=== PATIENT | female | born 1960 | race Caucasian/White ===

== ENCOUNTER → 2019-11-27 09:35 | Outpatient (BNVA) | payer MEDICARE, MEDICAID, SELFPAY | PROVIDERS: PCP Internal Medicine; Referring Provider Internal Medicine; Visit Provider Physician Assistant | DX: Z76.89 Persons encountering health services in other specified circumstances (principal) ==

== ENCOUNTER 2020-10-21 11:27 | Outpatient (REF) | payer OTHER, SELFPAY | END 2020-10-21 11:28 | disposition home or self-care (01) | LOC: HO.LNP 11:27 | PROVIDERS: PCP Internal Medicine | DX: N39.41 Urge incontinence (principal) | CPT/HCPCS: 87086; 87088; 87186; 99212 ==

== ENCOUNTER 2022-02-10 15:29 | Outpatient (REF) | payer OTHER, SELFPAY ==
[2022-02-10 17:34] LABS: Urine Cytology See Pathology rpt
== END 2022-02-10 15:30 | disposition home or self-care (01) ==
LOC: HO.LAB 15:29
PROVIDERS: PCP Internal Medicine; Visit Provider Nurse Practitioner Family
DX: N81.10 Cystocele, unspecified (principal); N39.46 Mixed incontinence; R31.29 Other microscopic hematuria
CPT/HCPCS: 51798; 88112; 99212

== ENCOUNTER → 2022-05-20 09:23 | Outpatient (BNVA) | payer OTHER, SELFPAY | PROVIDERS: PCP Internal Medicine; Visit Provider Urology | DX: R31.29 Other microscopic hematuria (principal); N39.46 Mixed incontinence; N81.10 Cystocele, unspecified; N32.81 Overactive bladder; N39.0 Urinary tract infection, site not specified | CPT/HCPCS: 51798; 99212 ==

== ENCOUNTER 2022-06-03 12:28 | Outpatient (REF) | payer OTHER, SELFPAY ==
--- NOTE | ~2022-06-03 | US_ITS ---
EXAMINATION: US RETROPERITONEAL COMPLETE (RENAL) CLINICAL INFORMATION: Urinary tract infection, site not specified. COMPARISON: None available. TECHNIQUE: Real-time imaging of the kidneys and bladder. FINDINGS: RIGHT KIDNEY: 11.2 x 5.0 x 6.1 cm (SAG x AP x TRV). The kidney is normal in size, contour, and echogenicity. Renal cortical thickness is normal. No calculi or focal parenchymal lesions. No hydronephrosis. LEFT KIDNEY: 11.5 x 5.0 x 4.5 cm (SAG x AP x TRV). The kidney is normal in size, contour, and echogenicity. Renal cortical thickness is normal. No calculi or focal parenchymal lesions. No hydronephrosis. Mild prominent of a lower pole renal calyx, nonspecific. BLADDER: Well distended and normal. Bilateral ureteral jets are demonstrated. Prevoid bladder volume is 158.3 mL. Postvoid bladder volume is 39.0 mL. US/US retroperitoneal comp IMPRESSION: 1. Mild asymmetric prominence of the lower pole renal calyx, nonspecific. Consider a short-term follow-up for reevaluation. 2. Increased post void bladder volume, 39 mL.
== END 2022-06-03 12:29 | disposition home or self-care (01) ==
LOC: HO.US 12:28
PROVIDERS: PCP Internal Medicine; Visit Provider Urology
DX: N39.0 Urinary tract infection, site not specified (principal); R31.29 Other microscopic hematuria
CPT/HCPCS: 76770

== ENCOUNTER 2022-07-01 13:25 | Outpatient (REF) | payer OTHER, SELFPAY ==
[2022-07-01 16:20] LABS: Urine Cytology See Pathology rpt
== END 2022-07-01 13:26 | disposition home or self-care (01) ==
LOC: HO.LAB 13:25
PROVIDERS: PCP Internal Medicine; Visit Provider Urology
DX: N32.81 Overactive bladder (principal); R31.29 Other microscopic hematuria; N39.0 Urinary tract infection, site not specified; Z79.899 Other long term (current) drug therapy
CPT/HCPCS: 51701; 52000; 87086; 87088; 87186; 88112

== ENCOUNTER 2023-01-02 09:14 | Outpatient (REF) | payer OTHER, SELFPAY | END 2023-01-02 09:15 | disposition home or self-care (01) | LOC: HO.LAB 09:14 | PROVIDERS: Visit Provider Urology | DX: N39.0 Urinary tract infection, site not specified (principal); N32.81 Overactive bladder; R31.29 Other microscopic hematuria; N39.46 Mixed incontinence | CPT/HCPCS: 51798; 81003; 87086; 87088; 87186; 99212 ==

== ENCOUNTER 2023-01-02 09:14 | Outpatient (AMB) | payer OTHER, SELFPAY ==
--- NOTE | 2023-01-02 10:38 | A.OFFVIS_ITS ---
Intake Intake Visit Reasons: 6m/OAB/cystocele/recurrent UTI Intake Note: Patient is Present for Follow Up Urology Medication: Estradiol, Myrbetriq, Vesicare Antibiotic Allergies: None Blood Thinners: None PVR: 75 Complaints: Patient states that she recently felt like she had a Urinary Tract Infection last week her reported symptoms was increased frequency. She took over the counter medication. Allergies No Known Allergies [No Known Allergies*] Allergy (Verified 01/02/23 10:43) HPI HPI Comments History of Present Illness Details Kerri is a 61-year-old female who presents to the office for Follow up. She has had LUTS of urgency and frequency and has been taking Myrbetriq 50 mg and Vesicare 5 mg for OAB symptoms. States occasional urinary leakage with coughing or sneezing. The patient states feeling prolapse of the bladder while having intercourse. She also had recurrent UTIs. LV-- 07/01/2022--evaluated and obtained office cytoscopy. Cystoscopy findings-- No suspicious bladder lesions visualized. Review of chart: History of gallstones and underwent cholecystectomy. Denies history of hysterectomy. Results: US retroperitoneal results reviewed?06/03/22-- Kidneys: WNL, no renal calculi or masses visualized. 07/01/22-- Ofice Cystoscopy - No suspicio us bladder lesions visualized. Plan: Continue Myrbetriq 50 mg and Vesicare 5 mg. Orderes were written for estradiol Urine culture was ordered. Urine for cytology was ordered. Follow-up after 6 months. [facility] Medical History Mixed incontinence urge and stress Urge incontinence of urine Surgical History History of weight loss surgery Review of Systems Const All systems reviewed & are unremarkable except as noted in HPI and below Reports no additional complaints Eyes Reports no additional complaints ENT Reports no additional complaints Card Denies dyspnea Resp Denies cough and Denies dyspnea GI Reports no additional complaints Reports no additional complaints Musc Reports no additional complaints Skin/Breast Denies rash and Denies unusual bruising Neuro Reports no additional complaints Psych Reports no additional complaints Endo Reports no additional complaints Joaquin/Lymph Reports no additional complaints Aller/Immun Reports no additional complaints Office Procedures Post Void Residual Post Residual Void Post Void Residual (PVR): 75 [id number] Void Residual by ultrasound Results AMB Urinalysis, Automated UA Leukoctes 70 Evan/uL Last Edit by Caprice Rojas, A on 01/02/23 11:00 UA Nitrite Positive Last Edit by Caprice Rojas, RMA on 01/02/23 11:00 UA Urobilinogen 0.2 mg/dL Last Edit by Caprice Rojas, A on 01/02/23 11:0 0 UA Protein 0 mg/dL Last Edit by Caprice Rojas, RMA on 01/02/23 11:00 UA pH 6.0 Last Edit by Caprice Rojas, RMA on 01/02/23 11:00 UA Blood 25 Cristopher/uL Last Edit by Caprice Rojas, A on 01/02/23 11:00 UA Specific [place] 1.015 Last Edit by Caprice Rojas, A on 01/02/23 11: 00 UA Ketone Negative Last Edit by Caprice Rojas, A on 01/02/23 11:00 UA Bilirubin 0 mg/dL Last Edit by Caprice Rojas, RMA on 01/02/23 11:00 UA Glucose 0 mg/dL Last Edit by Caprice Rojas, A on 01/02/23 11:00 Results Reviewed Results Reviewed: Laboratory Last Values Urine pH (Auto) 6.0 01/02/23 10:58 Specific [place] (Auto) 1.015 01/02/23 10:58 Urine Protein (Auto) 0 mg/dL 01/02/23 10:58 Glucose (UA)(Auto) 0 mg/dL 01/02/23 10:58 Urine Ketones (Auto) Negative 01/02/23 10:58 Urine Blood (Auto) 25 Cristopher/uL 01/02/23 10:58 Urine Nitrite (Auto) Positive 01/02/23 10:58 Urine Bilirubin (Auto) 0 mg/dL 01/02/23 10:58 Urine Urobilinogen (Auto) 0.2 mg/dL 01/02/23 10:58 Leukocyte Esterase (Auto) 70 Evan/uL 01/02/23 10:58 Assessment & Plan Assessment & Plan (1) Recurrent UTI: Code(s): N39.0 - Urinary tract infection, site not specified (2) OAB (overactive bladder): Code(s): N32.81 - Overactive bladder (3) Microscopic hematuria: Code(s): R31.29 - Other microscopic hematuria (4) Mixed incontinence urge and stress: Code(s): N39.46 - Mixed incontinence Plan Continue Myrbetriq 50 mg and Vesicare 5 mg. Urine culture was ordered. Macrobid Orders: Orders AMB Post Void Residual by ultrasound 01/02/23 N39.41 - Urge incontinence AMB Urinalysis Automated 01/02/23 Z13.9 - Encounter for screening, unspecified US renal BI 2 Months N39.0 - Urinary tract infection, site not specified, N32.81 - Overactive bladder Urine Culture 01/02/23 N39.0 - Urinary tract infection, site not specified Medications: New nitrofurantoin monohyd/m-cryst 100 mg (Macrobid) must administer with a meal/food 100 mg PO BID 14 caps 0RF Patient Instructions: The patient had an opportunity to ask questions regarding treatment plan. All questions were answered. Imaging, Laboratory studies and physical exam results were discussed and reviewed in detail. No major barriers to understanding were identified. The patient expressed understanding and agreement with the above treatment plan. The patient is aware they should contact our office by phone for worsening of their current condition or the appearance of new symptoms. Compliance is encouraged with any medications and followup testing that is ordered. It is a privilege to be allowed the opportunity to participate in the urologic care of your patient. If you have any questions or concerns regarding treatment for the above conditions please do not hesitate to contact me. The office telephone contact is [phone]. This note is constructed in part using voice recognition software. While every effort has been made to ensure accuracy nurse extern errors may have been included. Yours sincerely, Zamzam Werner MD Coding Level of Care Code Est Pt Level 4 (59537) Diagnoses Recurrent UTI N39.0 OAB (overactive bladder) N32.81 Microscopic hematuria R31.29 Mixed incontinence urge and stress N39.46 CPT Codes Post Residual Void - PVR CPT Code: 80183-Omcd Void Residual by ultrasound ([id number])
== END 2023-01-02 11:20 | disposition home or self-care (01) ==
PROVIDERS: Visit Provider Urology
DX: N39.0 Urinary tract infection, site not specified (principal); N32.81 Overactive bladder; R31.29 Other microscopic hematuria; N39.46 Mixed incontinence
CPT/HCPCS: 99214

== ENCOUNTER 2023-02-03 10:03 | Outpatient (REF) | payer OTHER, SELFPAY ==
--- NOTE | ~2023-02-03 | US_ITS ---
EXAMINATION: US RETROPERITONEAL LIMITED (RENAL ONLY) CLINICAL INFORMATION: Urinary tract infection, site not specified. COMPARISON: Ultrasound kidneys and bladder 06/03/2022. Ultrasound abdomen complete 01/23/2018. TECHNIQUE: Real-time imaging of the kidneys. Limited visualization due to bowel gas and body habitus. FINDINGS: RIGHT KIDNEY: 11.5 x 4.4 x 6.1 cm (SAG x AP x TRV). No hydronephrosis. No renal calculi. Renal cortical thickness is normal. Limited visualization. LEFT KIDNEY: 11.6 x 5.4 x 6.8 cm (SAG x AP x TRV). No renal calculi. Renal cortical thickness is normal. Limited visualization. Anechoic area midpole left kidney may represent focally dilated calyces versus a cyst and is difficult to characterize due to limited visualization. Similar findings demonstrated on ultrasound of 06/03/2022, but less characterized today due to technical differences. US/US renal BI IMPRESSION: Anechoic area midpole left kidney may represent focally dilated calyces versus a cyst and is difficult to characterize due to limited visualization. Similar findings demonstrated on ultrasound of 06/03/2022, but less characterized today due to technical differences. CT scan with intravenous contrast recommended for further evaluation.
== END 2023-02-03 10:04 | disposition home or self-care (01) ==
LOC: HO.US 10:03
PROVIDERS: PCP Internal Medicine; Visit Provider Urology
DX: N39.0 Urinary tract infection, site not specified (principal); N32.81 Overactive bladder
CPT/HCPCS: 76775

== ENCOUNTER 2023-05-03 13:06 | Outpatient (REF) | payer OTHER, SELFPAY | END 2023-05-03 13:07 | disposition home or self-care (01) | LOC: HO.LAB 13:06 | PROVIDERS: PCP Internal Medicine; Visit Provider Urology | DX: N81.9 Female genital prolapse, unspecified (principal); N39.0 Urinary tract infection, site not specified; R31.29 Other microscopic hematuria; N39.46 Mixed incontinence; N32.81 Overactive bladder | CPT/HCPCS: 51798; 81003; 87086; 87088; 87186; 99212 ==

== ENCOUNTER 2023-05-03 13:06 | Outpatient (AMB) | payer OTHER, SELFPAY ==
--- NOTE | 2023-05-03 13:20 | A.OFFVIS_ITS ---
Intake Intake Visit Reasons: 4m/US Intake Note: Patient is Present for Follow Up US Results Urology Medication: Estradiol, Myrbetriq, Vesicare Antibiotic Allergies: None Blood Thinners: None PVR: 84 mL Distribution Designer Required: No Accompanied by: Self / Same As Patient Allergies No Known Allergies [No Known Allergies*] Allergy (Verified 05/03/23 13:21) Medication List - Last Reconciled 05/03/23 by Zamzam Werner MD cholecalciferol (vitamin D3) 50 mcg PO DAILY estradiol 0.01%(0.1mg/gram) vaginally daily; pea sized amount to urethra daily 30 days mirabegron ER (Myrbetriq) 50 mg PO DAILY 90 days ofloxacin 0.3% 0 drps ophthalmic (eye) solifenacin (Vesicare) 5 mg PO DAILY 30 days triamcinolone acetonide 0.1% topical 3XW vitamin A 1 cap PO DAILY HPI HPI Comments History of Present Illness Details 05/03/2023--Kerri is here for follow up. S he is prescribed Myrbetriq 50 mg and VESIcare 5 mg for overactive bladder symptoms. She states the medications are working well. She was last seen in December 2022 urine culture was sent at that time which came back positive for E coli. She states in February she had UTI symptoms. She denies dysuria currently. She states she has infrequent episodes of stress incontinence. She states that her bladder is dropped and she can feel when she wipes after urinating as well as it is very bothersome during intercourse. She is also prescribed the Estrace cream which she is using. History of gallstones and underwent cholecystectomy. Denies history of hysterectomy. She has lost a lot of weight she used to be 400 lb she is now 204 lb. I will refer her to Urogynecology for further evaluation for vaginal prolapse. Urinalysis 3+ leukocytes blood trace. I will send urine for surveillance culture. Review of chart: 01/02/23--Kerri is a 61-year-old female wh o presents to the office for Follow up. She has had LUTS of urgency and frequency and has been taking Myrbetriq 50 mg and Vesicare 5 mg for OAB symptoms. States occasional urinary leakage with coughing or sneezing. The patient states feeling prolapse of the bladder while having intercourse. She also had recurrent UTIs. Orderes were written for estradiol. Urine culture was ordered. Follow-up after 6 months 07/01/22-- Ofice Cystoscopy - No suspicio us bladder lesions visualized. Results: US retroperitoneal results reviewed?06/03/22-- Kidneys: WNL, no renal calculi or masses visualized. 05/03/2023--Plan: Referral to Urogynecol bessie, urine for surveillance culture. Continue VESIcare 5 mg qd, Estrace cream, Myrbetriq 50 mg qd PFSH Medical History Mixed incontinence urge and stress Urge incontinence of urine Surgical History History of weight loss surgery Review of Systems Const All systems reviewed & are unremarkable except as noted in HPI and below Reports no additional complaints Eyes Reports no additional complaints ENT Reports no additional complaints Card Denies dyspnea Resp Denies cough and Denies dyspnea GI Reports no additional complaints Reports no additional complaints Musc Reports no additional complaints Skin/Breast Denies rash and Denies unusual bruising Neuro Reports no additional complaints Psych Reports no additional complaints Endo Reports no additional complaints Joaquin/Lymph Reports no additional complaints Aller/Immun Reports no additional complaints Office Procedures Post Void Residual Post Residual Void Post Void Residual (PVR): 84 [id number] Void Residual by ultrasound Results AMB Urinalysis, Automated UA Leukoctes 500 Evan/uL Last Edit by SANDRA Singleton on 05/03/23 13:47 3+ Jacob Hinds 05/03/23 13:47 UA Nitrite Negative Last Edit by SANDRA Singleton on 05/03/23 13:47 UA Urobilinogen 3.5 mg/dL Last Edit by SANDRA Singleton on 05/03/23 13:4 7 UA Protein 0 mg/dL Last Edit by Jacob ThompsonSANDRA mckoy on 05/03/23 13:47 UA pH 6.0 Last Edit by Jacob Thompsonleelee A on 05/03/23 13:47 UA Blood 10 Cristopher/uL Last Edit by Jacob Hinds A on 05/03/23 13:47 UA Specific [place] 1.010 Last Edit by Jacob Hinds A on 05/03/23 13: 47 UA Ketone Negative Last Edit by Jacob Thompsonleelee A on 05/03/23 13:47 UA Bilirubin 0 mg/dL Last Edit by Jacob Guevarazoë A on 05/03/23 13:47 UA Glucose 0 mg/dL Last Edit by Jacob Thompsonleelee Marija on 05/03/23 13:47 Results Reviewed Results Reviewed: Laboratory Last Values Urine pH (Auto) 6.0 05/03/23 13:29 Specific [place] (Auto) 1.010 05/03/23 13:29 Urine Protein (Auto) 0 mg/dL 05/03/23 13:29 Glucose (UA)(Auto) 0 mg/dL 05/03/23 13:29 Urine Ketones (Auto) Negative 05/03/23 13:29 Urine Blood (Auto) 10 Cristopher/uL 05/03/23 13:29 Urine Nitrite (Auto) Negative 05/03/23 13:29 Urine Bilirubin (Auto) 0 mg/dL 05/03/23 13:29 Urine Urobilinogen (Auto) 3.5 mg/dL 05/03/23 13:29 Leukocyte Esterase (Auto) 500 Evan/uL 05/03/23 13:29 Collected: 01/02/23 Status: COMP Req#: [id number] Received: 01/02/23 Source: [facility] Sp Desc: Urine bonilla Subm Dr: Zamzam Werner MD Ordered: Urine Culture Procedure Result Verified Urine Culture Final 01/04/23 Organism 1 Escherichia coli Quant > 100,000 cfu/mL E coli M.I.C. RX --------- --- Ampicillin 8 S Ceftriaxone <=0.25 S Gentamicin <=1 S Levofloxacin <=0.12 S Nitrofurantoin <=16 S Trimethoprim/Sulfamethoxazole <=20 S Assessment & Plan Assessment & Plan (1) Pelvic prolapse: Code(s): N81.9 - Female genital prolapse, unspecified (2) Recurrent UTI: Code(s): N39.0 - Urinary tract infection, site not specified (3) OAB (overactive bladder): Code(s): N32.81 - Overactive bladder (4) Microscopic hematuria: Code(s): R31.29 - Other microscopic hematuria (5) Mixed incontinence urge and stress: Code(s): N39.46 - Mixed incontinence Plan Referral to urogynecology Continue Myrbetriq, VESIcare, Estrace cream Urine culture today Orders: Orders AMB Urinalysis Automated Today Z13.9 - Encounter for screening, unspecified AMB Post Void Residual by ultrasound Today N39.8 - Other specified disorders of urinary system Urine Culture Today N39.0 - Urinary tract infection, site not specified Referrals Urogynecology Referral N39.0 - Urinary tract infection, site not specified, N81.9 - Female genital prolapse, unspecified Medications: Refilled solifenacin (Vesicare) 5 mg PO DAILY 90 tabs 2RF 30 days mirabegron ER (Myrbetriq) 50 mg PO DAILY 90 tabs 1RF 90 days estradiol 0.01%(0.1mg/gram) vaginally daily; pea sized amount to urethra daily 42.5 grams 5RF 30 days Patient Instructions: The patient had an opportunity to ask questions regarding treatment plan. All questions were answered. Imaging, Laboratory studies and physical exam results were discussed and reviewed in detail. No major barriers to understanding were identified. The patient expressed understanding and agreement with the above treatment plan. The patient is aware they should contact our office by phone for worsening of their current condition or the appearance of new symptoms. Compliance is encouraged with any medications and followup testing that is ordered. It is a privilege to be allowed the opportunity to participate in the urologic care of your patient. If you have any questions or concerns regarding treatment for the above conditions please do not hesitate to contact me. The office telephone contact is [phone]. This note is constructed in part using voice recognition software. While every effort has been made to ensure accuracy swing type lathe operator errors may have been included. Yours sincerely, Zamzam Werner MD Coding Level of Care Code Est Pt Level 4 (20171) Diagnoses Pelvic prolapse N81.9 Recurrent UTI N39.0 OAB (overactive bladder) N32.81 Microscopic hematuria R31.29 Mixed incontinence urge and stress N39.46 CPT Codes Post Residual Void - PVR CPT Code: 05023-Dtbz Void Residual by ultrasound ([id number])
== END 2023-05-03 14:23 | disposition home or self-care (01) ==
PROVIDERS: PCP Internal Medicine; Visit Provider Urology
DX: N81.9 Female genital prolapse, unspecified (principal); N39.0 Urinary tract infection, site not specified; N32.81 Overactive bladder; R31.29 Other microscopic hematuria; N39.46 Mixed incontinence; Z13.9 Encounter for screening, unspecified
CPT/HCPCS: 99214

== ENCOUNTER 2023-11-02 09:56 | Outpatient (AMB) | payer OTHER, SELFPAY ==
--- NOTE | 2023-11-02 09:57 | A.OFFVIS_ITS ---
Intake Visit Reasons: 6m follow up/PVR Intake Note: Patient is Present for 6M Follow Up/PVR Urology Medication: Estradiol, Myrbetriq, Vesicare, BACTRIM Antibiotic Allergies: None Blood Thinners: None PVR: 84 mL TODAY'S PVR:OML'S Business Economist Required: No Accompanied by: Self / Same As Patient Allergies No Known Allergies [No Known Allergies*] Allergy (Verified 11/02/23 09:58) Medication List - Last Reconciled 11/02/23 by Zamzam Werner MD cholecalciferol (vitamin D3) 50 mcg PO DAILY estradiol 0.01%(0.1mg/gram) vaginally daily; pea sized amount to urethra daily 30 days mirabegron ER (Myrbetriq) 50 mg PO DAILY 90 days solifenacin (Vesicare) 5 mg PO DAILY 30 days HPI Comments Details: 11/02/23--rhona is followed for mixed urinary incontinence and recurrent UTIs. Urinalysis today no signs of infection. The patient states she had a UTI about a month ago and went to urgent care and was treated with antibiotics. The patient is prescribed Estrace cream and is on VESIcare and Myrbetriq for overactive bladder symptoms. She states that her symptoms associated with coughing and bending are worsening. She has not gotten a call from Uro what job titles mean as yet. (referral was sent). I have discussed bulkamid urethral bulking agent.I have discussed the risks of bulking injection to the proximal urethra to include but not limited to urine retention requiring a clement catheter, need to repeat the procedure, hematuria, and urgency. Consent obtained. Review of chart: 05/03/2023--Kerri is here for follow up. She is prescribed Myrbetriq 50 mg and VESIcare 5 mg for overactive bladder symptoms. She states the medications are working well. She was last seen in December 2022 urine culture was sent at that time which came back positive for E coli. She states in February she had UTI symptoms. She denies dysuria currently. She states she has infrequent episodes of stress incontinence. She states that her bladder is dropped and she can feel when she wipes after urinating as well as it is very bothersome during intercourse. She is also prescribed the Estrace cream which she is using. History of gallstones and underwent cholecystectomy. Denies history of hysterectomy. She has lost a lot of weight she used to be 400 lb she is now 204 lb. I will refer her to Urogynecology for further evaluation for vaginal prolapse. Urinalysis 3+ leukocytes blood trace. I will send urine for surveillance culture. 01/02/23--Kerri is a 61-year-old female who presents to the office for Follow up. She has had LUTS of urgency and frequency and has been taking Myrbetriq 50 mg and Vesicare 5 mg for OAB symptoms. States occasional urinary leakage with coughing or sneezing. The patient states feeling prolapse of the bladder while having intercourse. She also had recurrent UTIs. Orderes were written for estradiol. Urine culture was ordered. Follow-up after 6 months 07/01/22-- Ofice Cystoscopy - No suspicious bladder lesions visualized. Results: US retroperitoneal results reviewed?06/03/22-- Kidneys: WNL, no renal calculi or masses visualized. [facility] Medical History Mixed incontinence urge and stress Urge incontinence of urine Surgical History History of weight loss surgery Review of Systems Const All systems reviewed & are unremarkable except as noted in HPI and below Reports no additional complaints Eyes Reports no additional complaints ENT Reports no additional complaints Card Reports no additional complaints Resp Reports no additional complaints GI Reports no additional complaints Reports as per HPI Musc Reports no additional complaints Skin/Breast Reports system reviewed and no additional complaints, except as documented Neuro Reports no additional complaints Psych Reports no additional complaints Endo Reports no additional complaints Joaquin/Lymph Reports no additional complaints Aller/Immun Reports no additional complaints Office Procedures Post Void Residual Post Residual Void Post Void Residual (PVR): 0 70040-Eiaq Void Residual by ultrasound Results AMB Urinalysis, Automated UA Leukoctes 70 Evan/uL Last Edit by MARITZA Roth on 11/02/23 10:08 UA Nitrite Negative Last Edit by Serg Mayer, [facility] on 11/02/23 10:08 UA Urobilinogen 0.2 mg/dL Last Edit by Serg Mayer, [facility] on 11/02/23 10:0 8 UA Protein 15 mg/dL Last Edit by Serg Mayer, [facility] on 11/02/23 10:08 UA pH 5.5 Last Edit by Serg Mayer, [facility] on 11/02/23 10:08 UA Blood 10 Cristopher/uL Last Edit by Serg Mayer, [facility] on 11/02/23 10:08 UA Specific [place] 1.030 Last Edit by Serg Mayer, [facility] on 11/02/23 10: 08 UA Ketone Negative Last Edit by Serg Mayer, [facility] on 11/02/23 10:08 UA Bilirubin 0 mg/dL Last Edit by Serg Mayer [facility] on 11/02/23 10:08 UA Glucose 0 mg/dL Last Edit by Serg Mayer [facility] on 11/02/23 10:08 Results Reviewed Results Reviewed: Laboratory Last Values Urine pH (Auto) 5.5 11/02/23 10:07 Specific [place] (Auto) 1.030 11/02/23 10:07 Urine Protein (Auto) 15 mg/dL 11/02/23 10:07 Glucose (UA)(Auto) 0 mg/dL 11/02/23 10:07 Urine Ketones (Auto) Negative 11/02/23 10:07 Urine Blood (Auto) 10 Cristopher/uL 11/02/23 10:07 Urine Nitrite (Auto) Negative 11/02/23 10:07 Urine Bilirubin (Auto) 0 mg/dL 11/02/23 10:07 Urine Urobilinogen (Auto) 0.2 mg/dL 11/02/23 10:07 Leukocyte Esterase (Auto) 70 Evan/uL 11/02/23 10:07 Collected: 01/02/23 Status: COMP Req#: [id number] Received: 01/02/23 Source: [facility] Sp Desc: Urine bonilla Subm Dr: Zamzam Werner MD Ordered: Urine Culture Procedure Result Verified Urine Culture Final 01/04/23 Organism 1 Escherichia coli Quant > 100,000 cfu/mL E coli M.I.C. RX --------- --- Ampicillin 8 S Ceftriaxone <=0.25 S Gentamicin <=1 S Levofloxacin <=0.12 S Nitrofurantoin <=16 S Trimethoprim/Sulfamethoxazole <=20 S Date of Service: 06/03/22 EXAMINATION: US RETROPERITONEAL COMPLETE (RENAL) CLINICAL INFORMATION: Urinary tract infection, site not specified. COMPARISON: None available. TECHNIQUE: Real-time imaging of the kidneys and bladder. FINDINGS: RIGHT KIDNEY: 11.2 x 5.0 x 6.1 cm (SAG x AP x TRV). The kidney is normal in size, contour, and echogenicity. Renal cortical thickness is normal. No calculi or focal parenchymal lesions. No hydronephrosis. LEFT KIDNEY: 11.5 x 5.0 x 4.5 cm (SAG x AP x TRV). The kidney is normal in size, contour, and echogenicity. Renal cortical thickness is normal. No calculi or focal parenchymal lesions. No hydronephrosis. Mild prominent of a lower pole renal calyx, nonspecific. BLADDER: Well distended and normal. Bilateral ureteral jets are demonstrated. Prevoid bladder volume is 158.3 mL. Postvoid bladder volume is 39.0 mL. IMPRESSION: 1. Mild asymmetric prominence of the lower pole renal calyx, nonspecific. Consider a short-term follow-up for reevaluation. 2. Increased post void bladder volume, 39 mL. Assessment & Plan Assessment & Plan (1) OAB (overactive bladder): Code(s): N32.81 - Overactive bladder Category: Medical (2) Microscopic hematuria: Code(s): R31.29 - Other microscopic hematuria Category: Medical (3) Intrinsic sphincter deficiency (ISD): Code(s): N36.42 - Intrinsic sphincter deficiency (ISD) Category: Medical Plan Cystoscopy. Bulkamid urethral bulking procedure. Consent obtained. Orders: Orders AMB Urinalysis Automated Today Z13.9 - Encounter for screening, unspecified Patient Instructions: The patient had an opportunity to ask questions regarding treatment plan. The patient expressed understanding and agreement with the above treatment plan. The patient is aware they should contact our office by phone for worsening of their current condition or the appearance of new symptoms. Compliance is encouraged with any medications and followup testing that is ordered. It is a privilege to be allowed the opportunity to participate in the urologic care of your patient. If you have any questions or concerns regarding treatment for the above conditions please do not hesitate to contact me. The office telephone contact is [phone]. This note is constructed in part using voice recognition software. While every effort has been made to ensure accuracy supervisor drying and winding errors may have been included. Yours sincerely, Zamzam Werner MD Coding Level of Care Code Est Pt Level 4 (65800) Diagnoses OAB (overactive bladder) N32.81 Microscopic hematuria R31.29 Intrinsic sphincter deficiency (ISD) N36.42 CPT Codes Post Residual Void - PVR CPT Code: 21005-Ifcr Void Residual by ultrasound ([id number])
== END 2023-11-02 10:49 | disposition home or self-care (01) ==
PROVIDERS: PCP Internal Medicine; Visit Provider Urology
DX: N32.81 Overactive bladder (principal); R31.29 Other microscopic hematuria; N36.42 Intrinsic sphincter deficiency (ISD); Z13.9 Encounter for screening, unspecified
CPT/HCPCS: 99214

== ENCOUNTER → 2023-11-02 09:56 | Outpatient (BNVA) | payer OTHER, SELFPAY | PROVIDERS: PCP Internal Medicine; Visit Provider Urology | DX: N39.46 Mixed incontinence (principal); N32.81 Overactive bladder; R31.29 Other microscopic hematuria | CPT/HCPCS: 51798; 81003; 99212 ==

== ENCOUNTER 2024-04-29 12:51 | Outpatient (REF) | payer OTHER, SELFPAY | END 2024-04-29 12:52 | disposition home or self-care (01) | LOC: HO.LAB 12:51 | PROVIDERS: Visit Provider Urology | DX: N39.0 Urinary tract infection, site not specified (principal); N32.81 Overactive bladder; N36.42 Intrinsic sphincter deficiency (ISD); N13.9 Obstructive and reflux uropathy, unspecified; R31.29 Other microscopic hematuria | CPT/HCPCS: 51798; 81003; 87086; 87088; 87186; 99212 ==

== ENCOUNTER 2024-04-29 12:51 | Outpatient (AMB) | payer OTHER, SELFPAY ==
--- NOTE | 2024-04-29 13:05 | A.OFFVIS_ITS ---
Intake Visit Reasons: ISD Followup Intake Note: Patient is present for ISD follow Up/PVR Urology Medication: Estradiol, Myrbetriq, Vesicare Antibiotic Allergies: None Blood Thinners: None PVR: 0ML'S Autistic Teacher Required: No Accompanied by: Self / Same As Patient Allergies No Known Allergies [No Known Allergies*] Allergy (Verified 04/29/24 13:05) HPI Comments Details: 04/29/24-Bonny is a 63-year-old female presenting with follow-up for urinary incontinence and recurrent urinary tract infections. She reports a longstanding history of mixed urinary incontinence, for which she has been treated with solifenacin and mirabegron, in addition to vaginal estrogen cream. I discussed with the patient the presence of mixed urinary incontinence and historical recurrent UTIs, recommending continuation of current medications. We explored the recent nitrate positive urinalysis indicating likely bacterial infection. I advised starting a course of Ciprofloxacin and sent a urine culture. Additionally, the patient experiences recurring urinary tract infections, affecting her quality of life and leading to frequent antibiotic treatments. These infections have been documented to impede diagnostic evaluations necessary for surgical planning related to her pelvic organ prolapse. Results - Labs: Urinalysis showing nitrate positive 11/02/23--lose is followed for mixed urinary incontinence and recurrent UTIs. Urinalysis today no signs of infection. The patient states she had a UTI about a month ago and went to urgent care and was treated with antibiotics. The patient is prescribed Estrace cream and is on VESIcare and Myrbetriq for overactive bladder symptoms. She states that her symptoms associated with coughing and bending are worsening. She has not gotten a call from Uro snag grinder as yet. (referral was sent). I have discussed bulkamid urethral bulking agent.I have discussed the risks of bulking injection to the proximal urethra to include but not limited to urine retention requiring a clement catheter, need to repeat the procedure, hematuria, and urgency. Consent obtained. 05/03/2023--Kerri is here for follow up. She is prescribed Myrbetriq 50 mg and VESIcare 5 mg for overactive bladder symptoms. She states the medications are working well. She was last seen in December 2022 urine culture was sent at that time which came back positive for E coli. She states in February she had UTI symptoms. She denies dysuria currently. She states she has infrequent episodes of stress incontinence. She states that her bladder is dropped and she can feel when she wipes after urinating as well as it is very bothersome during intercourse. She is also prescribed the Estrace cream which she is using. History of gallstones and underwent cholecystectomy. Denies history of hysterectomy. She has lost a lot of weight she used to be 400 lb she is now 204 lb. I will refer her to Urogynecology for further evaluation for vaginal prolapse. Urinalysis 3+ leukocytes blood trace. I will send urine for surveillance culture. 01/02/23--Kerri is a 61-year-old female who presents to the office for Follow up. She has had LUTS of urgency and frequency and has been taking Myrbetriq 50 mg and Vesicare 5 mg for OAB symptoms. States occasional urinary leakage with coughing or sneezing. The patient states feeling prolapse of the bladder while having intercourse. She also had recurrent UTIs. Orderes were written for estradiol. Urine culture was ordered. Follow-up after 6 months 07/01/22-- Ofice Cystoscopy - No suspicious bladder lesions visualized. Results: US retroperitoneal results reviewed?06/03/22-- Kidneys: WNL, no renal calculi or masses visualized. [facility] Medical History Mixed incontinence urge and stress Urge incontinence of urine Surgical History History of weight loss surgery Review of Systems Const All systems reviewed & are unremarkable except as noted in HPI and below Reports no additional complaints Eyes Reports no additional complaints ENT Reports no additional complaints Card Reports no additional complaints Resp Reports no additional complaints GI Reports no additional complaints Reports as per HPI Musc Reports no additional complaints Skin/Breast Reports system reviewed and no additional complaints, except as documented Neuro Reports no additional complaints Psych Reports no additional complaints Endo Reports no additional complaints Joaquin/Lymph Reports no additional complaints Aller/Immun Reports no additional complaints Office Procedures Post Void Residual Post Residual Void Post Void Residual (PVR): 0 [id number] Void Residual by ultrasound Results AMB Urinalysis, Automated UA Leukoctes 70 Evan/uL Last Edit by Crystal Munguia on 04/29/24 14:30 UA Nitrite Positive Last Edit by Crystal Munguia on 04/29/24 14:30 UA Urobilinogen 3.5 mg/dL Last Edit by Crystal Munguia on 04/29/24 14:30 UA Protein 1 mg/dL Last Edit by Crystal Munguia on 04/29/24 14:30 UA pH 6.0 Last Edit by Crystal Munguia on 04/29/24 14:30 UA Blood 25 Cristopher/uL Last Edit by Crystal Munguia on 04/29/24 14:30 UA Specific [place] 1.015 Last Edit by Crystal Munguia on 04/29/24 14:30 UA Ketone Negative Last Edit by Mckenzie Munguia on 04/29/24 14:30 UA Bilirubin 0 mg/dL Last Edit by Crystal Munguia on 04/29/24 14:30 UA Glucose 0 mg/dL Last Edit by Crystal Munguia on 04/29/24 14:30 Results Reviewed Results Reviewed: Laboratory Last Values Urine pH (Auto) 6.0 04/29/24 14:08 Specific [place] (Auto) 1.015 04/29/24 14:08 Urine Protein (Auto) 1 mg/dL 04/29/24 14:08 Glucose (UA)(Auto) 0 mg/dL 04/29/24 14:08 Urine Ketones (Auto) Negative 04/29/24 14:08 Urine Blood (Auto) 25 Cristopher/uL 04/29/24 14:08 Urine Nitrite (Auto) Positive 04/29/24 14:08 Urine Bilirubin (Auto) 0 mg/dL 04/29/24 14:08 Urine Urobilinogen (Auto) 3.5 mg/dL 04/29/24 14:08 Leukocyte Esterase (Auto) 70 Evan/uL 04/29/24 14:08 Date of Service: 06/03/22 EXAMINATION: US RETROPERITONEAL COMPLETE (RENAL) CLINICAL INFORMATION: Urinary tract infection, site not specified. COMPARISON: None available. TECHNIQUE: Real-time imaging of the kidneys and bladder. FINDINGS: RIGHT KIDNEY: 11.2 x 5.0 x 6.1 cm (SAG x AP x TRV). The kidney is normal in size, contour, and echogenicity. Renal cortical thickness is normal. No calculi or focal parenchymal lesions. No hydronephrosis. LEFT KIDNEY: 11.5 x 5.0 x 4.5 cm (SAG x AP x TRV). The kidney is normal in size, contour, and echogenicity. Renal cortical thickness is normal. No calculi or focal parenchymal lesions. No hydronephrosis. Mild prominent of a lower pole renal calyx, nonspecific. BLADDER: Well distended and normal. Bilateral ureteral jets are demonstrated. Prevoid bladder volume is 158.3 mL. Postvoid bladder volume is 39.0 mL. IMPRESSION: 1. Mild asymmetric prominence of the lower pole renal calyx, nonspecific. Consider a short-term follow-up for reevaluation. 2. Increased post void bladder volume, 39 mL. Assessment & Plan Assessment & Plan (1) OAB (overactive bladder): Code(s): N32.81 - Overactive bladder Category: Medical (2) Microscopic hematuria: Code(s): R31.29 - Other microscopic hematuria Category: Medical (3) Intrinsic sphincter deficiency (ISD): Code(s): N36.42 - Intrinsic sphincter deficiency (ISD) Category: Medical (4) Recurrent UTI: Code(s): N39.0 - Urinary tract infection, site not specified Category: Medical Plan Cipro 500 mg bid, cont myrbetriq, vesicare, has Urogyn fu Patient Instructions - Start taking Ciprofloxacin 500 mg twice a day as prescribed - Continue using solifenacin, mirabegron, and estrogen cream as directed - Attend follow-up with urogynecology on May 15 - Monitor symptoms and report any worsening or new symptoms promptly Orders: Orders Urine Culture Today N39.0 - Urinary tract infection, site not specified AMB Urinalysis Automated Today Z13.9 - Encounter for screening, unspecified Medications: New ciprofloxacin HCl 500 mg PO BID 14 tabs 0RF Patient Instructions: The patient had an opportunity to ask questions regarding treatment plan. The patient expressed understanding and agreement with the above treatment plan. The patient is aware they should contact our office by phone for worsening of their current condition or the appearance of new symptoms. Compliance is encouraged with any medications and followup testing that is ordered. It is a privilege to be allowed the opportunity to participate in the urologic care of your patient. If you have any questions or concerns regarding treatment for the above conditions please do not hesitate to contact me. The office telephone contact is [phone]. This note is constructed in part using voice recognition software. While every effort has been made to ensure accuracy supervisor floor assembly errors may have been included. Yours sincerely, Zamzam Werner MD Scribe Plan - Not visible on output: Patient was informed and verbally consented to the use of an ambient scribe for clinic note documentation during this visit. Coding Level of Care Code Est Pt Level 4 (08438) Diagnoses OAB (overactive bladder) N32.81 Microscopic hematuria R31.29 Intrinsic sphincter deficiency (ISD) N36.42 Recurrent UTI N39.0 CPT Codes Post Residual Void - PVR CPT Code: 25013-Imkr Void Residual by ultrasound ([id number])
--- OUTSIDE RECORDS SUMMARY | 2024-04-29 14:58 | XMS_ITS | Encounter Summary ---
Author Organization [facility] Address [address] [place] [id number] Care Team Providers Care Glass Mould Cleaner Name Role Phone Lisa Ivan MD Primary Care Provider [phone] Encounter Details Date Type Department Care Team (Late st Contact Info) Description 04/19/2024 Telephone Internal Medicine - [place] 175 [facility] [address] [place] [phone] Lisa Ivan MD 175 [facility] [address] [place] [address] Social History Tobacco Use Types Packs/Day Years Used Date Smoking Tobacco: Former Cigarettes Q uit: 02/13/2007 Smokeless Tobacco: Never Alcohol Use Standard Drinks/Week Comments Yes 0 (1 standard drink = 0.6 oz pur e alcohol) Comments Unknown Sex and Gender Information Value Date Recorded Sex Assigned at Not on file Legal Sex Female 4:55 AM EST Gender Identity Not on file Sexual Orientation Not on file documented as of this encounter Progress Notes * Alvaro Munguia MA - 04/22/2024 9:22 AM EDT Called [facility] [phone] . Office is faxing Colon Report right now. * Lisa Ivan MD - 04/19/2024 9:43 AM EST Get colon report from Isaias Massey last yr documented in this encounter Plan of Treatment Upcoming Encounters Date Type Department Care Team (Late st Contact Info) Description 06/12/2024 1:40 PM EDT Appointment Radiology Department [address] [phone] 10/22/2024 8:45 AM EDT Office Visit Internal Medicine - [place] [address] [phone] Lisa Ivan MD [address] [phone] documented as of this encounter Visit Diagnoses Not on filedocumented in this encounter Care Teams Glass Mould Cleaner Relationship Specialty Start Date End Date Lisa Ivan MD [address] [phone] PCP - General Internal Medicine 09/12/18 documented as of this encounter
--- OUTSIDE RECORDS SUMMARY | 2024-04-29 14:58 | XMS_ITS | Clinical Summary ---
Author Organization [facility] Address [address] [place] [address] Phone Care Team Providers Care Kitchen Clerk Name Role Phone Lisa Ivan MD Primary Care Provider [phone] Allergies No known active allergies Medications camphor-methyl salicyl-menthoL (Salonpas) 3.1-10-6 % adhesive patch,medicated Apply 1 Each topically 4 times daily. 3 Active cholecalciferol (VITAMIN D-3) 50 mcg (2,000 unit) tablet Take 1 tablet (2,000 Units total) by mouth 1 (one) time each day. Active incontinence pad,liner,disp (PERSONAL CONFIDENCE LINERS MIS) Use 1 liner TID for incontinence. Please dispense large liners. N32.81 9 Active incontinence pad, liner, disp (Poise Pantiliners) pad 1 Each by Does not apply route 4 times daily. 3 Active incontinence pad,liner,disp (PREVAIL PANT LINER MIS) 1 Each by Does not apply route daily. 4 Active meloxicam (MOBIC) 7.5 mg tablet TK 1 T PO BID 8 Active Myrbetriq 50 mg tablet extended release 24 hr 24 hr tablet Take 1 tablet (50 mg total) by mouth 1 (one) time each day. Active lactose-reduced food (ENSURE ENLIVE ORAL) Take 1 Can by mouth 4 times daily. 8 Active polyethylene glycol (PEG) 17 gram/dose oral powder Take 17 g by mouth daily for 30 days. 8 Active potassium chloride (KLOR-CON) 10 mEq CR tablet Take 1 tablet (10 mEq total) by mouth 1 (one) time each day. 4 Active triamcinolone (KENALOG) 0.1 % ointment Apply a small amount to the affected 3x per week. 2 Active vitamin A palmitate-vitam in D2 10,000-400 unit tablet TK 3 CS PO ONCE A DAY 8 Active cyanocobalamin (VITAMIN B-12) 1,000 mcg tablet Take 1 tablet (1,000 mcg total) by mouth 1 (one) time each day. Active zinc gluconate 30 mg tablet TK 1 T PO QOD 8 Active Active Problems Problem Noted Date Diagnosed Date H/O gastric bypass 04/19/2024 Hypokalemia 03/03/2022 Dyspareunia, female 03/18/2021 Overview (01/20/2024): Last Assessment & Plan: Pelvic ultrasound ordered Lichen sclerosus 06/15/2020 Overview (01/20/2024): Last Assessment & Plan: Reviewed findings with patient. Well controlled. I reviewed the importance of regular maintenance topical steroid use to prevent symptoms, further scarring, and squamous cell cancer of the vulva. Patient instructed to decrease steroid use to 3x/wk. I also explained the importance of regular follow up to ensure she has no evidence of precancerous or cancerous changes and that she is not having side effects from her medication. I reviewed areas of application and amount of medication to use. Patient to follow-up in 6 months. Bladder prolapse, female, acquired 03/13/2020 Overview (01/20/2024): Last Assessment & Plan: Reviewed options for pelvic organ prolapse including observation, as long as not having difficulty emptying or significant discomfort, pessary fitting, vs surgical intervention. She has no difficulty emptying bladder. She desires to observe for now, but will call if she desires pessary fitting in the future. Urge incontinence 03/13/2020 Overview (01/20/2024): Last Assessment & Plan: Patient to continue Myrbetriq and continue follow-up with [facility] Vaginal itching 03/13/2020 Overview (01/20/2024): Last Assessment & Plan: Wet prep done today to r/o yeast infection, will treat as indicated. Reviewed findings with patient. I counseled her that findings are consistent with lichen sclerosus. Vulvovaginal hygiene reviewed. Recommend sitz baths and use of vaseline for comfort. I explained this is likely an autoimmune inflammatory condition and that the mainstay of therapy is use of maintenance topical steroid. I explained that women with lichen sclerosus are at about a 5 fold increased risk of SCC over the general population. Explained that the purpose of the steroid is to prevent symptoms, further scarring, and squamous cell cancer of the vulva. I also explained the importance of regular follow up to ensure she has no evidence of precancerous or cancerous changes and that she is not having side effects from her medication. I reviewed areas of application and amount of medication to use. She voiced understanding. She will start steroid burst and taper and return in 3 months for follow-up. Overactive bladder 07/03/2017 Varicosities of leg 09/23/2016 Internal hemorrhoids 06/20/2014 DJD (degenerative joint disease) of knee 012 Meralgia paresthetica 01/15/2010 Allergic rhinitis 09/01/2008 Morbid obesity with body mass index (BMI) of 40. 0 to 49.9 08/21/2005 Overview (01/20/2024): S/p bariatric surgery LOAN (obstructive sleep apnea) 08/21/2005 Encounters Date Type Department Care Team Description 04/19/2024 9:30 AM EST Office Visit Internal Medicine - [address] [phone] Lisa Ivan MD Vitamin B12 deficiency (Primary Dx); Vitamin D deficiency; Hyperglycemia; Hypokalemia; Morbid obesity with body mass index (BMI) of 40.0 to 49.9 ([facility]); Adult general medical examination; LOAN (obstructive sleep apnea); H/O gastric bypass 04/19/2024 Telephone Internal Medicine - [address] [phone] Lisa Ivan MD from Last 3 Months Immunizations Name Administration Dates Next Due Influenza trivalent, 0.5mL, preservative free (Fluarix; FluLaval; Fluzone) ages 6mo and older (Afluria) 3 years and older 12/13/2012,12/14/2011,01/15/2010,2006 Tdap Tetanus diptheria acell ular pertussis (Boostrix; Adacel) 7yo and older 04/01/2015,12/15/2006 Surgical History Surgery Date Site/Laterality Comments OTHER SURGICAL HISTORY 03/27 PROCEDURE: MAMMOGRAM COLONOSCOPY 12/18 PROCEDURE: PA COLONOSCOPY STOMA DX INCLUDING COLLJ SPEC SPX; COMMENT: Dr Patel, normal, repeat 10 years TUBAL LIGATION PROCEDURE: HISTORICAL TUBAL LIGATION LAPAROSCOPIC GASTRIC BANDING 10/2012 PROCEDURE: LAP ADJUSTABLE GASTRIC BAND BREAST BIOPSY Left PROCEDURE: BX BREAST; PERC NEEDLE CORE W/IMAG GUID; COMMENT: lt bx neg BREAST REDUCTION Bilateral PROCEDURE: PA BREAST REDUCTION; COMMENT: 1987 Medical History Medical History Date Comments Allergic rhinitis 09/01/2008 DX:Allergic rh initis DJD (degenerative joint dise ase) of knee 09/05/2011 DX:DJD (degenerative joint d isease) of knee Morbid obesity with body mas s index (BMI) of 40.0 to 49.9 ([facility]) 08/21/2005 DX:Morbid obesity with body mass index (BMI) of 40.0 to 49.9 ([facility]); COMMENT: s/p bariatric surgery LOAN (obstructive sleep apnea) 08/21/2005 DX :LOAN (obstructive sleep apnea) Meralgia paresthetica 01/15/2010 DX:Meralgi a paresthetica Internal hemorrhoids 06/20/2014 DX:Internal hemorrhoids Overactive bladder 07/03/2017 DX:Overactive bladder Varicosities of leg 09/23/2016 DX:Varicosit ies of leg History of bariatric surgery 01/15/2018 DX: History of bariatric surgery Family History Medical History Relation Name Comments Breast cancer Aunt 1 mat aunt Diabetes Aunt 2 maternal, also maternal cousin Other: head and neck cancer Father 59 Colon cancer Maternal Grandfather and gre at uncle (grandfather's brother) Hypertension Maternal Grandmother stroke, Other: gallstones Mother Breast cancer Other 1 p cousin paternal cousi n at 45 Relation Name Status Comments Aunt 1 mat aunt Alive Aunt 2 Father Maternal Grandfather Maternal Grandmother Mother Other 1 p cousin Alive Other 2 p 2nd cousin 30 Alive Social History Tobacco Use Types Packs/Day Years [...] on file Sexual Orientation Not on file Obstetrics History Last Filed Vital Signs Vital Sign Reading Time Taken Comments Blood Pressure 118/74 04/19/2024 9:23 AM EST Pulse 75 04/19/2024 9:23 AM EST Temperature 36.5 ??C (97.7 ??F) 04/19/2024 9:23 AM ES T Respiratory Rate - - Oxygen Saturation 97% 04/19/2024 9:23 AM EST Inhaled Oxygen Concentration - - Weight 89.8 kg (198 lb) 04/19/2024 9:23 AM EST Height 152.4 cm (5') 10/20/2023 11:11 AM EDT Body Mass Index 38.67 10/20/2023 11:11 AM EDT Plan of Treatment Upcoming Encounters Date Type Department Care Team (Late st Contact Info) Description 06/12/2024 1:40 PM EDT Appointment Radiology Department [address] [phone] 10/22/2024 8:45 AM EDT Office Visit Internal Medicine - [place] [facility] [address] [place] [phone] Lisa Ivan MD [address] [facility] [address] [place] [phone] Health Maintenance Due Date Last Done Comments Pneumococcal Vaccine: 50+ Years (1 of 1 - PCV) 2012 Zoster Vaccines (1 of 2) 2012 Depression Screening 01/22/2022 HIV Screening 01/22/2022 Hepatitis C Screening 01/22/2022 Social Influencers of Health Screening 01/22/2022 RSV Immunization Patients 60+ Years Old (1 - Risk 60-74 years 1-dose series) 2022 COVID-19 Vaccine (3 - 2023- season) 2023 01/28/2021, 05/22/2020 Influenza Vaccine (#1) 2023 , 10/16/2019, 04/10/2019, Additional history exists Colorectal Cancer Screening: Colonoscopy 02/23/2024 02/22/2019 Cervical Cancer Screening: HPV 03/13/2025 03/13/2020 DTaP,Tdap,and Td Vaccines (3 - Td or Tdap) 04/01/2025 04/01/2015, 12/15/2006 Breast Cancer Screening 06/06/2025 06/07/19, 06/07/2023, 05/27/2022, Additional history exists Cholesterol Screening (Lipid Panel) 10/22/2028 10/23/2023, 10/23/2023 HIB Vaccines Aged Out No longer eligi ble based on patient's age to complete this topic HPV Vaccines Aged Out No longer eligi ble based on patient's age to complete this topic Hepatitis A Vaccines Aged Out No long er eligible based on patient's age to complete this topic Hepatitis B Vaccines Aged Out No long er eligible based on patient's age to complete this topic IPV Vaccines Aged Out No longer eligi ble based on patient's age to complete this topic MMR Vaccines Aged Out No longer eligi ble based on patient's age to complete this topic Meningococcal ACWY Vaccine Aged Out N o longer eligible based on patient's age to complete this topic Meningococcal B Vacine Aged Out No lo nger eligible based on patient's age to complete this topic Pneumococcal Vaccine: Pediatrics (0 to 5 Years) and At-Risk Patients (6 to 64 Years) Aged Out No longer eligible based on patient's age to complete this topic RSV Immunization Patients Under 20 months Aged Out No longer eligible based on patient's age to complete this topic Varicella Vaccines Aged Out No longer eligible based on patient's age to complete this topic Procedures Procedure Name Priority Date/Time Associated Diagnosis Comments LIPID PANEL Routine 10/23/2023 SCREENING MAMMOGRAPHY BI 2-VIEW BREAST INC CAD Routine 06/07/2023 9:19 AM EDT Encounter for screening mammogram for malignant neoplasm of breast HPV Routine 03/13/2020 COLONOSCOPY Routine 02/22/2019 from Last 3 Months or Most Recently Relevant to Health Maintenance Results * Lipid panel (10/23/2023) LDL/HDL Ratio 2 0 - 4 Triglycerides 58 0 - 150 mg/dL Cholesterol 195 0 - 200 mg/dL HDL 129 >=40 mg/dL LDL Cholesterol 55 0 - 100 mg/dL Blood Venous blood specimen / Unknown us Historical Provider LAB BLOOD ORDERABLES Nohemy l Result * SCREENING MAMMOGRAPHY BI 2-VIEW BREAST INC CAD (06/07/2023 9:19 AM EDT) Anatomical Region Laterality Modality Radiographic Mayela ging 05/27/2022 9:12 AM EDT Narrative 06/07/2023 8:28 PM EDT This is a summary report. The complete report is available in the patient's medical record. If you cannot access the medical record, please contact the sending organization for a detailed fax or copy. Study: SCREENING MAMMOGRAPHY BI 2-VIEW BREAST INC CAD Technique: Bilateral full-field digital screening mammography is obtained and read in conjunction with computer aided detection. ??Tomosynthesis as well as 2D C-View imaging were obtained. ??Best possible images according to technologist notes. Comparison: Comparison made to multiple prior, most recent May 27, 2022, and most remote April 24, 2014. Breast composition: There are scattered areas of fibroglandular density. Bilateral breasts: Status post bilateral reduction mammoplasty. ??No significant masses, suspicious calcifications or other abnormalities are seen in either breast. IMPRESSION: Impression: Bilateral breasts: Benign, no specific mammographic evidence of malignancy. ??Normal interval follow-up is recommended in 12 months. BI-RADS: Category 2: Benign Procedure Note Linda Monson MD - 10/02/2023 This is a summary report. The complete report is available in thepatient's medical record. If you cannot access the medical record, pleasecontact the sending organization for a detailed fax or copy. Study: SCREENING MAMMOGRAPHY BI 2-VIEW BREAST INC CAD Technique: Bilateral full-field digital screening mammography is obtainedand read in conjunction with computer aided detection. Tomosynthesis aswell as 2D C-View imaging were obtained. Best possible images accordingto technologist notes. Comparison: Comparison made to multiple prior, most recent May 27, 2022,and most remote April 24, 2014. Breast composition: There are scattered areas of fibroglandular density. Bilateral breasts: Status post bilateral reduction mammoplasty. Nosignificant masses, suspicious calcifications or other abnormalities areseen in either breast. IMPRESSION: Impression: Bilateral breasts: Benign, no specific mammographic evidence ofmalignancy. Normal interval follow-up is recommended in 12 months. BI-RADS: Category 2: Benign Alvin Deshpande DO IMG XR PROCEDURES Final Resul t * Cervical Cancer Screening: HPV (03/13/2020) Pathologist [facility] Cervical Cancer Screening: HPV NEGATIVE, ABSTRACTED Historical Provider HEALTH MAINTENANCE Final Result * Colonoscopy (02/22/2019) Pathologist [facility] Colonoscopy NO INTERPRETATION , ABSTRACTED Anatomical Region Laterality Modality Other Historical Provider HEALTH MAINTENANCE Final Result from Last 3 Months or Most Recently Relevant to Health Maintenance Insurance MEDICAID - [place] Care Teams Kitchen Clerk Relationship Specialty Start Date End Date Lisa Ivan MD [address] [place] [phone] PCP - General Internal Medicine 09/12/18
--- OUTSIDE RECORDS SUMMARY | 2024-04-29 14:58 | XMS_ITS | Encounter Summary ---
Author Organization [facility] Address [address] [place] [phone] Care Team Providers Care Freight Manager Name Role Phone Lisa Ivan MD Primary Care Provider [phone] Reason for Visit * Reason Comments Follow-up Encounter Details Date Type Department Care Team (Late st Contact Info) Description 04/19/2024 9:30 AM EST Office Visit Internal Medicine - [place] [address] [facility] [address] [place] [phone] Lisa Ivan MD [address] [facility] [address] [place] [phone] Vitamin B12 deficiency (Primary Dx); Vitamin D deficiency; Hyperglycemia; Hypokalemia; Morbid obesity with body mass index (BMI) of 40.0 to 49.9 (CMS/HCC); Adult general medical examination; LOAN (obstructive sleep apnea); H/O gastric bypass Social History Tobacco Use Types Packs/Day Years [...] on file documented as of this encounter Last Filed Vital Signs Vital Sign Reading Time Taken Comments Blood Pressure 118/74 04/19/2024 9:23 AM EST Pulse 75 04/19/2024 9:23 AM EST Temperature 36.5 ??C (97.7 ??F) 04/19/2024 9:23 AM ES T Respiratory Rate - - Oxygen Saturation 97% 04/19/2024 9:23 AM EST Inhaled Oxygen Concentration - - Weight 89.8 kg (198 lb) 04/19/2024 9:23 AM EST Height - - Body Mass Index 38.67 10/20/2023 11:11 AM EDT documented in this encounter Progress Notes * Lisa Ivan MD - 04/19/2024 9:30 AM EST CHIEF COMPLAINT: Follow-up IDENTIFIER: Kerri Rooney is a 63 y.o. old female. HPI: Hypokalemia, urinary incontinence, obesity, bilateral severe knee arthritis,right knee replaced,h/o gastric bypass ,vitamin B12 def. Patient is doing well, no significant complaints today. ROS: GENERAL: No malaise, significant weight loss or fever NECK: No lumps, goiter, pain or significant neck swelling RESPIRATORY: No cough, wheezing or shortness of breath CARDIOVASCULAR: No chest pain, leg swelling or palpitations GI: No abdominal discomfort, blood in stools or black stools PSYCH: No sleep disturbance, mood disorder or recent psychosocial stressors. PAST MEDICAL HISTORY: Patient Active Problem List Diagnosis Date Noted H/O gastric bypass 04/19/2024 Hypokalemia 03/03/2022 Dyspareunia, female 03/18/2021 Lichen sclerosus 06/15/2020 Bladder prolapse, female, acquired 03/13/2020 Urge incontinence 03/13/2020 Vaginal itching 03/13/2020 Overactive bladder 07/03/2017 Varicosities of leg 09/23/2016 Internal hemorrhoids 06/20/2014 DJD (degenerative joint disease) of knee 09/05/2011 Meralgia paresthetica 01/15/2010 Allergic rhinitis 09/01/2008 Morbid obesity with body mass index (BMI) of 40.0 to 49.9 ([facility]) 08/21/2005 LOAN (obstructive sleep apnea) 08/21/2005 Past Surgical History: Procedure Laterality Date BREAST BIOPSY Left PROCEDURE: BX BREAST; PERC NEEDLE CORE W/IMAG GUID; COMMENT: lt bx neg BREAST REDUCTION Bilateral PROCEDURE: KY BREAST REDUCTION; COMMENT: 1987 COLONOSCOPY 12/18 PROCEDURE: KY COLONOSCOPY STOMA DX INCLUDING COLLJ SPEC SPX; COMMENT: Dr Patel, normal, repeat 10 years LAPAROSCOPIC GASTRIC BANDING 10/2012 PROCEDURE: LAP ADJUSTABLE GASTRIC BAND OTHER SURGICAL HISTORY 03/27 PROCEDURE: MAMMOGRAM TUBAL LIGATION PROCEDURE: HISTORICAL TUBAL LIGATION SOCIAL HISTORY: Social History Tobacco Use Smoking status: Former Current packs/day: 0.00 Types: Cigarettes Quit date: 02/13/2007 Years since quittin.1 Smokeless tobacco: Never Substance Use Topics Alcohol use: Yes Alcohol/week: 0.0 standard drinks of alcohol FAMILY HISTORY: Family History Problem Relation Name Age of Onset Breast cancer Aunt mat aunt maternal Breast cancer Aunt mat aunt Other (Other: gallstones) Mother Other (Other: head and neck cancer) Father 59 Colon cancer Maternal Grandfather and great uncle (grandfather's brother) Hypertension Maternal Grandmother stroke, Diabetes Aunt maternal, also maternal cousin Breast cancer Other p cousin paternal cousin at 45 Family Status Relation Name Status Aunt mat aunt Alive Mother (Not Specified) Father (Not Specified) MGF (Not Specified) MGM (Not Specified) Aunt (Not Specified) Other p cousin Alive Other p 2nd cousin 30 Alive No partnership data on file MEDICATIONS DISCONTINUED/REORDERED: There are no discontinued medications. ACTIVE MEDICATIONS: Outpatient Medications Marked as Taking for the 04/19/24 encounter (Office Visit) with Lisa Ivan MD Medication Sig Dispense Refill camphor-methyl salicyl-menthoL (Salonpas) 3.1-10-6 % adhesive patch,medicated Apply 1 Each topically 4 times daily. cholecalciferol (VITAMIN D-3) 50 mcg (2,000 unit) tablet Take 1 tablet (2,000 Units total) by mouth1 (one) time each day. cyanocobalamin (VITAMIN B-12) 1,000 mcg tablet Take 1 tablet (1,000 mcg total) by mouth 1 (one) time each day. incontinence pad, liner, disp (Poise Pantiliners) pad 1 Each by Does not apply route 4 times daily. incontinence pad,liner,disp (PERSONAL CONFIDENCE [facility]) Use 1 liner TID for incontinence. Please dispense large liners. N32.81 incontinence pad,liner,disp (PREVAIL PANT [facility]) 1 Each by Does not apply route daily. lactose-reduced food (ENSURE ENLIVE ORAL) Take 1 Can by mouth 4 times daily. meloxicam (MOBIC) 7.5 mg tablet TK 1 T PO BID Myrbetriq 50 mg tablet extended release 24 hr 24 hr tablet Take 1 tablet (50 mg total) by mouth 1 (one) time each day. polyethylene glycol (PEG) 17 gram/dose oral powder Take 17 g by mouth daily for 30 days. potassium chloride (KLOR-CON) 10 mEq CR tablet Take 1 tablet (10 mEq total) by mouth 1 (one) time each day. triamcinolone (KENALOG) 0.1 % ointment Apply a small amount to the affected 3x per week. vitamin A palmitate-vitamin D2 10,000-400 unit tablet TK 3 CS PO ONCE A DAY zinc gluconate 30 mg tablet TK 1 T PO QOD ALLERGIES: No Known Allergies PHYSICAL EXAM: Visit Vitals BP 118/74 (BP Location: Left arm, Patient Position: Sitting, BP Cuff Size: Large adult) Pulse 75 Temp 36.5 ??C (97.7 ??F) (Temporal) Wt 89.8 kg (198 lb) SpO2 97% BMI 38.67 kg/m?? Smoking Status Former BSA 1.86 m?? APPEARANCE: Alert and in no acute distress NECK: Neck supple, no adenopathy, thyroid symmetric and of normal size HEART: RRR with normal S1 and S2, no murmurs, no gallops, no JVD appreciated LUNG: clear to auscultation ABDOMEN: Bowel sounds normoactive, no bruits, soft, non-tender, without organomegaly or palpable masses SKIN: Skin color, texture, turgor normal. No rashes or lesions. LABS/IMAGING: Abstract on 01/20/2024 Component Date Value Ref Range Status Gonorrhea/Chlamydia Screening 03/13/2020 ABSTRACTED Final Annual BMP Blood Test 01/28/2022 ABSTRACTED Final Cervical Cancer Screening: HPV 03/13/2020 NEGATIVE, ABSTRACTED Final Pap smear 03/13/2020 ABNORMAL, ABSTRACTED Final Colonoscopy 02/22/2019 NO INTERPRETATION, ABSTRACTED Final LDL/HDL Ratio 10/23/2023 2 0 - 4 Final Triglycerides 10/23/2023 58 0 - 150 mg/dL Final Cholesterol 10/23/2023 195 0 - 200 mg/dL Final HDL 10/23/2023 129 >=40 mg/dL Final LDL Cholesterol 10/23/2023 55 0 - 100 mg/dL Final Hemoglobin A1C 10/23/2023 5.1 <=6.5 % Final Medication and lab orders: Orders Placed This Encounter Procedures Hemoglobin A1c Comprehensive metabolic panel Lipid panel with reflex to direct LDL Complete blood count Thyroid stimulating hormone Vitamin B12 Vitamin D 25 hydroxy Other orders: None IMPRESSION: 1. Vitamin B12 deficiency 2. Vitamin D deficiency 3. Hyperglycemia 4. Hypokalemia 5. Morbid obesity with body mass index (BMI) of 40.0 to 49.9 ([facility]) 6. Adult general medical examination 7. LOAN (obstructive sleep apnea) 8. H/O gastric bypass PLAN: Bilateral knee severe arthritis--recent right knee replacement done, planning to schedule the left knee replacement. Urgent continence--will send supplies to the pharmacy, on Myrbetriq, stable Hypokalemia--- continue potassium supplement Obstructive sleep apnea--using CPAP Vitamin B12 deficiency--continue the supplement History of gastric bypass--5 years ago, lost about 70 pounds. Up-to-date with mammogram Patient had a colonoscopy at [facility] in 2023, will obtain the records Will follow-up in 6 months or sooner as needed Lisa Ivan MD on 04/19/2024 at 12:48 PM EST documented in this encounter Plan of Treatment Upcoming Encounters Date Type Department Care Team (Late st Contact Info) Description 06/12/2024 1:40 PM EDT Appointment Radiology Department [address] [phone] 10/22/2024 8:45 AM EDT Office Visit Internal Medicine - [place] [address] [phone] Lisa Ivan MD [address] [facility] [address] [place] [phone] Scheduled Orders Name Type Priority Associated Diagnoses Orde r Schedule Hemoglobin A1c Lab Routine Vitamin B12 deficiency Vitamin D deficiency Hyperglycemia Hypokalemia Morbid obesity with body mass index (BMI) of 40.0 to 49.9 ([facility]) Adult general medical examination Expected: 04/19/2024, Expires: 04/19/2025 Comprehensive metabolic panel Lab Routine Vitamin B12 deficiency Vitamin D deficiency Hyperglycemia Hypokalemia Morbid obesity with body mass index (BMI) of 40.0 to 49.9 ([facility]) Adult general medical examination Expected: 04/19/2024, Expires: 04/19/2025 Lipid panel with reflex to direct LDL Lab Routine Vitamin B12 deficiency Vitamin D deficiency Hyperglycemia Hypokalemia Morbid obesity with body mass index (BMI) of 40.0 to 49.9 ([facility]) Adult general medical examination 1 Occurrences starting 04/19/2024 until 04/19/2025 Complete blood count Lab Routine Vitamin B12 deficiency Vitamin D deficiency Hyperglycemia Hypokalemia Morbid obesity with body mass index (BMI) of 40.0 to 49.9 ([facility]) Adult general medical examination Expected: 04/19/2024, Expires: 04/19/2025 Thyroid stimulating hormone Lab Routine Vitamin B12 deficiency Vitamin D deficiency Hyperglycemia Hypokalemia Morbid obesity with body mass index (BMI) of 40.0 to 49.9 ([facility]) Adult general medical examination Expected: 04/19/2024, Expires: 05/20/2024 Vitamin B12 Lab Routine Vitamin B12 deficiency Vitamin D deficiency Hyperglycemia Hypokalemia Morbid obesity with body mass index (BMI) of 40.0 to 49.9 ([facility]) Adult general medical examination Expected: 04/19/2024, Expires: 05/20/2024 Vitamin D 25 hydroxy Lab Routine Vitamin B12 deficiency Vitamin D deficiency Hyperglycemia Hypokalemia Morbid obesity with body mass index (BMI) of 40.0 to 49.9 ([facility]) Adult general medical examination 1 Occurrences starting 04/19/2024 until 04/19/2025 documented as of this encounter Visit Diagnoses Diagnosis Vitamin B12 deficiency- Primary Other B-complex deficiencies Vitamin D deficiency Hyperglycemia Other abnormal glucose Hypokalemia Hypopotassemia Morbid obesity with body mass index (BMI) of 40.0 to 49.9 ([facility]) Adult general medical examination Unspecified general medical examination LOAN (obstructive sleep apnea) Obstructive sleep apnea (adult) (pediatric) H/O gastric bypass Encounter for screening mammogram for breast cancer documented in this encounter Care Teams Freight Manager Relationship Specialty Start Date End Date Lisa Ivan MD [address] [place] [phone] PCP - General Internal Medicine 09/12/18 documented as of this encounter
== END 2024-04-29 13:38 | disposition home or self-care (01) ==
LOC: HO.HUSH 12:51
PROVIDERS: Visit Provider Urology
DX: Z13.9 Encounter for screening, unspecified (principal)

== ENCOUNTER 2024-08-29 07:58 | Outpatient (AMB) | payer OTHER, SELFPAY ==
--- NOTE | 2024-08-28 21:52 | A.OFFVIS_ITS ---
Intake Visit Reasons: 4M follow up Intake Note: Patient is present for 3MO follow Up/PVR Urology Medication: Estradiol, Myrbetriq, Vesicare Antibiotic Allergies: None Blood Thinners: None PVR: 31MLS Contact Clerk Required: No Accompanied by: Self / Same As Patient Allergies No Known Allergies (No Known Allergies*) Allergy (Verified 08/29/24 08:05) Medication List - Last Reconciled 08/29/24 by Zamzam Werner MD cholecalciferol (vitamin D3) 50 mcg PO DAILY ciprofloxacin HCl 500 mg PO BID estradiol 0.01%(0.1mg/gram) vaginally daily; pea sized amount to urethra daily 30 days mirabegron ER (Myrbetriq) 50 mg PO DAILY 90 days HPI Comments Details: 08/29/24--Kerri is a 63-year-old female presenting with follow-up for urinary incontinence and recurrent urinary tract infections. She is s/p bulkamid for ISD. She has had greater than 80 % improvement in stress symptoms. For OAB, she has been treated with solifenacin and mirabegron, in addition to vaginal estrogen cream. Additionally, the patient experiences recurring urinary tract infections. LV- 04/29/24 - urine c/s ---Klebsiella treated with Cipro The patient states that she had a total hysterectomy and bladder suspension on A pril at [facility]. She is doing very well post the procedure. We will discontinue the VESIcare that she takes at night. Will continue the Myrbetriq during the day. Follow-up in 1 year 04/29/24-Kerri is a 63-year-old female presenting with follow-up for urinary incontinence and recurrent urinary tract infections. She is s/p bulkamid for ISD. She has had greater than 80 % improvement in stress symptoms. For OAB, she has been treated with solifenacin and mirabegron, in addition to vaginal estrogen cream. Additionally, the patient experiences recurring urinary tract infections, affecting her quality of life and leading to frequent antibiotic treatments. I advised starting a course of Ciprofloxacin and sent a urine culture. Results - Labs: Urinalysis showing nitrate positive 11/02/23--Kerri s followed for mixed urinary incontinence and recurrent UTIs. Urinalysis today no signs of infection. The patient states she had a UTI about a month ago and went to urgent care and was treated with antibiotics. The patient is prescribed Estrace cream and is on VESIcare and Myrbetriq for overactive bladder symptoms. She states that her symptoms associated with coughing and bending are worsening. She has not gotten a call from Uro cadastral surveyor as yet. (referral was sent). I have discussed bulkamid urethral bulking agent.I have discussed the risks of bulking injection to the proximal urethra to include but not limited to urine retention requiring a clement catheter, need to repeat the procedure, hematuria, and urgency. Consent obtained. 05/03/2023--Kerri is here for follow up. She is prescribed Myrbetriq 50 mg and VESIcare 5 mg for overactive bladder symptoms. She states the medications are working well. She was last seen in December 2022 urine culture was sent at that time which came back positive for E coli. She states in February she had UTI symptoms. She denies dysuria currently. She states she has infrequent episodes of stress incontinence. She states that her bladder is dropped and she can feel when she wipes after urinating as well as it is very bothersome during intercourse. She is also prescribed the Estrace cream which she is using. History of gallstones and underwent cholecystectomy. Denies history of hysterectomy. She has lost a lot of weight she used to be 400 lb she is now 204 lb. I will refer her to Urogynecology for further evaluation for vaginal prolapse. Urinalysis 3+ leukocytes blood trace. I will send urine for surveillance culture. 01/02/23--Kerri is a 61-year-old female who presents to the office for Follow up. She has had LUTS of urgency and frequency and has been taking Myrbetriq 50 mg and Vesicare 5 mg for OAB symptoms. States occasional urinary leakage with coughing or sneezing. The patient states feeling prolapse of the bladder while having intercourse. She also had recurrent UTIs. Orderes were written for estradiol. Urine culture was ordered. Follow-up after 6 months 07/01/22-- Ofice Cystoscopy - No suspicious bladder lesions visualized. Results: US retroperitoneal results reviewed?06/03/22-- Kidneys: WNL, no renal calculi or masses visualized. [facility] Medical History Mixed incontinence urge and stress Urge incontinence of urine Surgical History History of weight loss surgery Review of Systems Const All systems reviewed & are unremarkable except as noted in HPI and below Reports no additional complaints Eyes Reports no additional complaints ENT Reports no additional complaints Card Reports no additional complaints Resp Reports no additional complaints GI Reports no additional complaints Reports as per HPI Musc Reports no additional complaints Skin/Breast Reports system reviewed and no additional complaints, except as documented Neuro Reports no additional complaints Psych Reports no additional complaints Endo Reports no additional complaints Joaquin/Lymph Reports no additional complaints Aller/Immun Reports no additional complaints Results Reviewed Results Reviewed: 04/19/24--Urine culture Klebsiella pneumoniae Quant > 100,000 cfu/mL Kleb pneum M.I.C. RX --------- --- Ampicillin 16 R Cefepime <=0.12 S Ceftriaxone <=0.25 S Ciprofloxacin <=0.06 S Gentamicin <=1 S Nitrofurantoin 64 I Trimethoprim/Sulfamethoxazole <=20 S Date of Service: 06/03/22 EXAMINATION: US RETROPERITONEAL COMPLETE (RENAL) CLINICAL INFORMATION: Urinary tract infection, site not specified. COMPARISON: None available. TECHNIQUE: Real-time imaging of the kidneys and bladder. FINDINGS: RIGHT KIDNEY: 11.2 x 5.0 x 6.1 cm (SAG x AP x TRV). The kidney is normal in size, contour, and echogenicity. Renal cortical thickness is normal. No calculi or focal parenchymal lesions. No hydronephrosis. LEFT KIDNEY: 11.5 x 5.0 x 4.5 cm (SAG x AP x TRV). The kidney is normal in size, contour, and echogenicity. Renal cortical thickness is normal. No calculi or focal parenchymal lesions. No hydronephrosis. Mild prominent of a lower pole renal calyx, nonspecific. BLADDER: Well distended and normal. Bilateral ureteral jets are demonstrated. Prevoid bladder volume is 158.3 mL. Postvoid bladder volume is 39.0 mL. IMPRESSION: 1. Mild asymmetric prominence of the lower pole renal calyx, nonspecific. Consider a short-term follow-up for reevaluation. 2. Increased post void bladder volume, 39 mL. Assessment & Plan Assessment & Plan (1) OAB (overactive bladder): Code(s): N32.81 - Overactive bladder Category: Medical (2) Recurrent UTI: Code(s): N39.0 - Urinary tract infection, site not specified Category: Medical Plan Discontinue VESIcare. Continue Myrbetriq. Follow-up in 1 year Medications: Refilled mirabegron ER (Myrbetriq) 50 mg PO DAILY 90 tabs 3RF 90 days Discontinued solifenacin (Vesicare) Discontinued Reason: Doctor's Order 5 mg PO DAILY 30 days 90 tabs 2RF Patient Instructions: The patient had an opportunity to ask questions regarding treatment plan. The patient expressed understanding and agreement with the above treatment plan. The patient is aware they should contact our office by phone for worsening of their current condition or the appearance of new symptoms. Compliance is encouraged with any medications and followup testing that is ordered. It is a privilege to be allowed the opportunity to participate in the urologic care of your patient. If you have any questions or concerns regarding treatment for the above conditions please do not hesitate to contact me. The office telephone contact is [phone]. This note is constructed in part using voice recognition software. While every effort has been made to ensure accuracy flexboard operator errors may have been included. Yours sincerely, Zamzam Werner MD Coding Level of Care Code Est Pt Level 3 (90905) Diagnoses OAB (overactive bladder) N32.81 Recurrent UTI N39.0
--- OUTSIDE RECORDS SUMMARY | 2024-08-29 08:01 | XMS_ITS | Clinical Summary ---
Author Organization [address] [facility] Address [address] [place] [address] Phone Care Team Providers Care Rn Chemical Dependency Name Role Phone Lisa Ivan MD Primary Care Provider [phone] Allergies No known active allergies Medications camphor-methyl salicyl-mentho L (Salonpas) 3.1-10-6 % adhesive patch,medicate d Apply 1 Each topically 4 times daily. 08/25/19 23 Active incontinence pad,liner,disp (PERSONAL CONFIDENCE LINERS [facility]) Use 1 liner TID for incontinence. Please dispense large liners. N32.81 10/05/19 19 Active incontinence pad, liner, disp (Poise Pantiliners) pad 1 Each by Does not apply route 4 times daily. 08/25/19 23 Active incontinence pad,liner,disp (PREVAIL PANT LINER [facility]) 1 Each by Does not apply route daily. 10/20/19 24 Active meloxicam (MOBIC) 7.5 mg tablet TK 1 T PO BID 12/27/19 18 Active Myrbetriq 50 mg tablet extended release 24 hr 24 hr tablet Take 1 tablet (50 mg total) by mouth 1 (one) time each day. Active lactose-reduce d food (ENSURE ENLIVE ORAL) Take 1 Can by mouth 4 times daily. 01/19/20 18 Active polyethylene glycol (PEG) 17 gram/dose oral powder Take 17 g by mouth daily for 30 days. 01/19/20 18 Active potassium chloride (KLOR-CON) 10 mEq CR tablet Take 1 tablet (10 mEq total) by mouth 1 (one) time each day. 05/29/19 24 Active triamcinolone (KENALOG) 0.1 % ointment Apply a small amount to the affected 3x per week. 03/18/19 22 Active vitamin A palmitate-rochelle min D2 10,000-400 unit tablet TK 3 CS PO ONCE A DAY 12/27/19 18 Active zinc gluconate 30 mg tablet TK 1 T PO QOD 12/28/19 18 Active cholecalcifero l (VITAMIN D-3) 50 mcg (2,000 unit) tablet TAKE 1 TABLET BY MOUTH DAILY 90 tablet 1 08/21/19 25 Active cyanocobalamin (VITAMIN B-12) 1,000 mcg tablet TAKE 1 TABLET BY MOUTH DAILY 90 tablet 1 08/21/19 25 Active cholecalcifero l (VITAMIN D-3) 50 mcg (2,000 unit) tablet Take 1 tablet (2,000 Units total) by mouth 1 (one) time each day. 025 Discontinued cyanocobalamin (VITAMIN B-12) 1,000 mcg tablet Take 1 tablet (1,000 mcg total) by mouth 1 (one) time each day. 025 Discontinued Active Problems Problem Noted Date Diagnosed Date [...] to continue Myrbetriq and continue follow-up with [place] urologist Vaginal itching 03/13/2020 Overview (01/20/2024): Last [...] Allergic rhinitis 09/01/2008 Morbid obesity with body mas s index (BMI) of 40.0 to 49.9 ([facility] V24, [facility] V28) 08/21/2005 Overview (01/20/2024): S/p bariatric surgery LOAN (obstructive sleep apnea) 08/21/2005 Immunizations Name Administration Dates Next Due Influenza trivalent, 0.5mL, preservative free (Fluarix; FluLaval; Fluzone) ages 6mo and older (Afluria) 3 years and older 12/13/2012,12/14/2011,01/15/2010,2006 Tdap Tetanus diptheria acell ular pertussis (Boostrix; Adacel) 7yo and older 04/01/2015,12/15/2006 Surgical History Surgery Date Site/Laterality Comments OTHER SURGICAL HISTORY 03/27 PROCEDURE: MAMMOGRAM COLONOSCOPY 12/18 PROCEDURE: [place] COLONOSCOPY STOMA DX INCLUDING COLLJ SPEC SPX; COMMENT: Dr Patel, normal, repeat 10 years TUBAL LIGATION PROCEDURE: HISTORICAL TUBAL LIGATION LAPAROSCOPIC GASTRIC BANDING 10/2012 PROCEDURE: LAP ADJUSTABLE GASTRIC BAND BREAST BIOPSY Left PROCEDURE: BX BREAST; PERC NEEDLE CORE W/IMAG GUID; COMMENT: lt bx neg BREAST REDUCTION Bilateral PROCEDURE: NH BREAST REDUCTION; COMMENT: 1987 Medical History Medical History Date Comments Allergic rhinitis 09/01/2008 DX:Allergic rh initis DJD (degenerative joint dise ase) of knee 09/05/2011 DX:DJD (degenerative joint d isease) of knee Morbid obesity with body mas s index (BMI) of 40.0 to 49.9 ([facility] V24, [facility] V28) 08/21/2005 DX:Morbid obesity with body mass index (BMI) of 40.0 to 49.9 ([facility]); COMMENT: s/p bariatric surgery LOAN (obstructive sleep [...] 77 04/19/2024 9:23 AM EST Temperature 36.5 C (97.7 F) 04/19/2024 9:23 AM EST Respiratory Rate - - Oxygen Saturation 97% 04/19/2024 9:23 AM EST Inhaled Oxygen Concentration - - Weight 89.8 kg (198 lb) 04/19/2024 9:23 AM EST Height 152.4 cm (5') 10/20/2023 11:11 AM EDT Body Mass Index 38.67 10/20/2023 11:11 AM EDT Plan of Treatment Upcoming Encounters Date Type Department Care Team (Late st Contact Info) Description 10/22/2024 8:45 AM EDT Office Visit Internal Medicine - [place] [address] [facility] [address] [place] [address] Lisa Ivan MD [address] [facility] [address] [place] [address] Health Maintenance Due Date Last Done Comments Pneumococcal Vaccine: 50+ Years (1 of 1 - PCV) 2012 Zoster Vaccines (1 of 2) 2012 Depression Screening 01/22/2022 HIV Screening 01/22/2022 Hepatitis C Screening 01/22/2022 Social Influencers of Health Screening 01/22/2022 RSV Immunization Adult Patients (1 - Risk 60-74 years 1-dose series) 2022 COVID-19 Vaccine ( season) 2023 01/28/2021, 05/22/2020 Colorectal Cancer Screening: Colonoscopy 02/23/2024 02/22/2019 Influenza Vaccine (#1) 2024 , 10/16/2019, 04/10/2019, Additional history exists Cervical Cancer Screening: HPV 03/13/2025 03/13/2020 DTaP,Tdap,and [...] age to complete this topic Meningococcal B Vaccine Aged Out No l onger eligible based on patient's age to complete [...] in conjunction with computer aided detection. Tomosynthesis as well as 2D C-View imaging were obtained. Best possible images according to technologist notes. Comparison: Comparison made to multiple prior, most recent May 27, 2022, and most remote April 24, 2014. Breast composition: There are scattered areas of fibroglandular density. Bilateral breasts: Status post bilateral reduction mammoplasty. No significant masses, suspicious calcifications or other abnormalities are seen in either breast. IMPRESSION: Impression: Bilateral breasts: Benign, no specific mammographic evidence of malignancy. Normal interval follow-up is recommended in 12 [...] t * Cervical Cancer Screening: HPV (03/13/2020) Cervical Cancer Screening: HPV NEGATIVE, ABSTRACTED Historical Provider HEALTH MAINTENANCE Final Result * Colonoscopy (02/22/2019) Colonoscopy NO INTERPRETATION , ABSTRACTED Anatomical Region Laterality Modality Other Historical Provider HEALTH MAINTENANCE Final Result from Last 3 Months or Most Recently Relevant to Health Maintenance Insurance [place] - [place] [facility] Member Subscriber Plan / Payer (Ef fective 2019-Present) Name:Kerri Rooney Relation to Subscriber:Self Name:Kerri Rooney Payer ID:[id number] Group ID:[id number] Type:Not on file Address: [address] [place] [address] Care Teams Rn Chemical Dependency Relationship Specialty Start Date End Date Lisa Ivan MD [address] [address] PCP - General Internal Medicine 09/12/18
== END 2024-08-29 08:47 | disposition home or self-care (01) ==
LOC: HO.HUSH 07:59
PROVIDERS: Visit Provider Urology
DX: N32.81 Overactive bladder (principal); N39.0 Urinary tract infection, site not specified
CPT/HCPCS: 99213

== ENCOUNTER → 2024-08-29 07:58 | Outpatient (BNVA) | payer OTHER, SELFPAY | PROVIDERS: Visit Provider Urology | DX: N32.81 Overactive bladder (principal); N39.0 Urinary tract infection, site not specified | CPT/HCPCS: 99212 ==